=== PATIENT | female | born 1995 | race Caucasian/White ===

== ENCOUNTER 2020-03-05 09:36 | Outpatient (CLI) | payer OTHER ==
[2020-03-06 13:56] LABS: SARS-CoV-2 MS2 Positive; SARS-CoV-2 N Gene Negative; SARS-CoV-2 S Gene Negative; SARS-CoV-2 orf1ab Negative
== END 2020-03-05 09:37 | disposition home or self-care (01) ==
LOC: SCSLAB 09:36
PROVIDERS: ATTEND Family Medicine
DX: Z01.812 Encounter for preprocedural laboratory examination (principal); Z11.59 Encounter for screening for other viral diseases
CPT/HCPCS: 87635; U0003

== ENCOUNTER 2020-03-08 19:30 | Inpatient (IN) | payer MEDICAID, OTHER ==
[~2020-03-08 19:30] MED LIST: Bupivacaine/Epinephrine 0.25% 30 ML VIAL ONE
[2020-03-08] MEDS ORDERED: Promethazine HCl 25 MG/ML VIAL IM PRN (19:59)
[2020-03-08] MEDS ORDERED: hydrALAZINE 20 MG/ML VIAL SLOW IVP PRN (19:59)
[2020-03-08] MEDS ORDERED: Acetaminophen 500 MG TAB PO PRN (19:59)
[2020-03-08] MEDS ORDERED: Ondansetron PF 4 MG/2 ML Vial IVP PRN (19:59)
[2020-03-08] MEDS ORDERED: NS / Oxytocin 40 units/1000ml 1,000 ML IV PRN ×2 (20:03→20:39)
[2020-03-08] MEDS ORDERED: Lidocaine 1% (PF) 30 ML VIAL SC PRN ×2 (20:03→20:39)
--- NOTE | 2020-03-08 20:08 | PDOC.FPROB ---
FMR OB H&P: HPI - History of Present Illness Chief Complaint: eIOL Indentification: 24yo F @ 40.2wks History of Present Illness: This is a 24yo @ 40.2wks by LMP/7wk sono. WALTER 03/06/2020. She is scheduled for an elective IOL. Patient denies any CTX. Endorses normal FM, denies LOF, vaginal bleeding, dysuria LE swelling, vision changes, headache, NVD, sore throat, cough, congestion, fever or chills. Of note, patient late transfer of care. She moved to the [facility] in January. She did have care in [place] up until that point. Primary Care Physician: JASON Cruz FMR OB H&P: Current - Care : 1 Para: 0 Gestational age: 40.2 Due date: 03/06/2020 Dating Criteria: LMP/7wk sono - OB Labs Blood type: A RH: positive Antibody Screen: negative HIV: negative RPR: negative HepBsAg: negative Rubella: immune Gonorrhea: negative Chlamydia: negative Pap Smear: 2019, normal 1 hour gtt: failed by 1 pt 3 hour GTT: normal - First Trimester Ultrasound First trimester: normal - Anatomy Survey Anatomy survey: normal FMR OB H&P: History - Past Medical History PMH: no PMH - OB History OB History: G1, failed her 1hr GTT by one point and had normal 3 hr gtt - CASER IN History CASER IN History: normal pap in 2019, no hx of STDs - Surgical History Sx History: none - Social History Social History: Denies tobacco, alcohol or drug use - Family History Family History: DM, HTN FMR OB H&P: Medications - Current Home Medications: Medication Instructions Recorded Confirmed Type No Known 03/08/20 03/08/20 History Allergies/Adverse Reactions: Allergies Allergy/AdvReac Type Severity Reaction Status Date / Time Penicillins Allergy Hives Verified 03/08/20 20:35 FMR OB H&P: ROS - Review of Systems General: denies: fever/chills, weight/appetite/sleep changes, night sweats, fatigue Eyes: denies: vision changes, double vision, scotomas, floaters ENT: denies: nasal congestion, rhinorrhea, frequent nose bleed, sinus pain/ pressure Cardiovascular: denies: chest pain, palpitation, edema, paroxysmal nocturnal dyspnea Respiratory: denies: cough, congestion, shortness of breath, exercise intolerance Gastrointestinal: denies: abdominal pain, cramping, nausea, vomiting, diarrhea, constipation Genitourinary (Female): denies: dysuria, vaginal discharge, vaginal pain, vaginal bleeding Musculoskeletal: denies: pain, stiffness, tenderness, swelling Neurologic: denies: weakness Integumentary: denies: rash FMR OB H&P: Physical Exam - Physical Exam General: NAD, awake, alert and oriented HEENT: normocephalic and atraumatic, PERRLA, EOMI, MMM Neck: supple, FROM Chest: non-tender to palpation, no lesions Heart: RRR, normal S1/S2, no murmurs/rubs/gallops, pulses present General: CTAB, no respiratory distress, good air movement, no rales/rhonchi, no wheezing, no retractions Abdomen: soft, gravid, non-tender Musculoskeletal: normal gait and station, pulses present, FROM in all four extremities Neurological: no focal deficit Skin: no rash, good tugor, capillary refill <2 seconds Psychiatric: intact recent and remote memory, good judgement and insight, normal mood and affect - Pelvic Exam Vulva: normal hair distribution SVE: /-2 Harper score: 6 FMR OB H&P: A/P - Problem List (1) Intrauterine Current Visit: Yes Status: Acute Code(s): Z34.90 - ENCNTR FOR SUPRVSN OF NORMAL , UNSP, UNSP TRIMESTER (2) Term Current Visit: Yes Status: Acute Code(s): Z34.90 - ENCNTR FOR SUPRVSN OF NORMAL , UNSP, UNSP TRIMESTER Disposition: Term sIUP SVE: /-2. FHT cat 1 strip, irregular CTX. Patient comfortable. - Admit to L&D for eIOL - Routine labor care - LR @ 125ml/hr, NPO - Will give cytotech, harper of 6, Repeat check in 4 hours - GBS negative, no indication for abx - Will confirm cephalic with US Dispo: admit to L&D Case discussed with Dr. Thomson Discussion: Date/Time: 03/08/202004 This H&P was discussed with [] and [] who agree with the above documentation and plan. Addendum - Attending - Attending Attestation Date/Time: 03/08/202106 I personally evaluated the patient and discussed the management with Dr. Bryant I agree with the History, Examination, Assessment and Plan documented above with any addition or exceptions noted below. 24 yo at 40.2 wks by LMP/7 wk sono admitted for eIOL Patient doing well. No complaints. VS reviewed. FHT cat 1 SVE /-3 - eIOL: Cephalic on sono. Cat 1 tracing. Discussed options. Prefers miso for cervical ripening. If reassuring can consider intermittent monitoring if patient desires to move around. - sIUP: IOB labs reviewed. Opos. Anatomy reviewed but limited. 2T/3T negative but failed 1 hour gtt. GBS negative. - [facility]
[2020-03-08 20:35] VITALS: BMI 37.7
[2020-03-08] MEDS: Misoprostol 100 MCG TAB VAG SCH (21:16)
[2020-03-08 21:34] LABS: Hemoglobin 13.3 g/dL (12.0-16.0); Mean Corpuscular HGB CONC 33.6 g/dL (32.0-36.0); Mean Corpuscular Hemoglobin 31.2 pg (27.0-31.0); Mean Corpuscular Volume 92.9 fL (78.0-98.0); Mean Platelet Volume 8.8 fL (7.4-10.4); Platelet Count 252 thou/uL (130-400); Red Blood Cell (RBC) Count 4.27 mill/uL (4.20-5.40); White Blood Cell (WBC) Count 7.6 thou/uL (4.8-10.8)
[2020-03-08 22:13] LABS: Syphilis Antibody Nonreactive (Nonreactive); Syphilis Antibody Index 0.03 S/CO (<1.00 Non-Reactive)
[2020-03-08 22:48] LABS: HBSAg Index 0.13 S/CO (0-0.99); Hep B Surf Ag Non-Reactive S/CO (NonReactive)
--- NOTE | 2020-03-09 01:19 | PDOC.LDPN ---
Labor & Delivery Progress Note - Subjective Subjective: comfortable - Objective Vital signs reviewed and normal: yes General: NAD, resting FHT: category 1 [place] contractions every: feels contractions [id number] Plan: continue plan of care -: 24 yo at 40.3 weeks by LMP c/w 7 wk pieter, WALTER 03/06/20 who presents for eIOL : # Term sIUP SVE: . Cat 1 strip, Pt feeling contractions [id number]. On monitor she is will q2-3 mins. Will administer another cytotec as pt is not feeling contractions. No loss of fluids. - place 2nd cytotec # GBS Negative Dispo: continue induction Addendum - Attending - Attending Attestation Date/Time: 03/09/20 0204 I personally evaluated the patient and discussed the management with Dr. Johansen I agree with the History, Examination, Assessment and Plan documented above with any addition or exceptions noted below. Cervix still unfavorable. Cat 1 tracing. 2nd miso placed. Repeat exam in 4 hours or sooner if indicated. Yenifer
[2020-03-09] MEDS: Misoprostol 100 MCG TAB VAG SCH ×6 (02:06→18:51)
[2020-03-09 04:32] LABS: Amphetamine Not Detected (NotDetected); Barbiturates Screen Not Detected (NotDetected); Benzodiazepine Screen Not Detected (NotDetected); Cocaine Metabolite Screen Not Detected (NotDetected); Medtox Control Line Valid? VALID (VALID); Medtox Reader # READER 4; Methadone Not Detected (NotDetected); Methamphetamine Not Detected (NotDetected); Opiate Screen Not Detected (NotDetected); Oxycodone Screen Not Detected (NotDetected); Phencyclidine (PCP) Not Detected (NotDetected); THC/Cannabinoid Screen Not Detected (NotDetected); Tricyclic Screen Not Detected (NotDetected)
[2020-03-09] MEDS: Lactated Ringer's 1,000 ML IV SCH ×3 (07:01→20:20)
--- NOTE | 2020-03-09 09:15 | PDOC.LDPN ---
Labor & Delivery Progress Note - Subjective Subjective: comfortable - Objective Vital signs reviewed and normal: yes General: NAD Dilation: 1.5 Effacement: 75% (80) Station: -1 FHT: category 1 (135/mod/+accel/no decel) Plan: labor augmentation, pitocin for augmentation -: 24 yo at 40.3 weeks by LMP c/w 7 wk sono, WALTER 03/06/20 who presents for eIOL : # Term sIUP SVE: . Cat 1 strip, ctx q2-4 min. Last cytotec @ 0200. - no significant cervical change for hours. - balloon placement attempted, but unable. Head was down and engaged. AROM @ 0910. Start pitocin # GBS Negative Plan: Start pitocin Addendum - Attending - Attending Attestation Date/Time: 03/09/20 5316 I personally evaluated the patient and discussed the management with Dr. Amin. I agree with the History, Examination, Assessment and Plan documented above with any addition or exceptions noted below. Low lying head and posterior cervical os prevented cook balloon placement by both speculum and manual attempts. However, head was engaged and so I was able to rupture amnion and initiate pitocin.
[2020-03-09] MEDS: NS w/ Oxytocin 10 units 500 ML IV SCH (09:35)
[2020-03-09] MEDS ORDERED: Butorphanol Tartrate 1 MG/ML VIAL ONE (12:38)
[2020-03-09] MEDS ORDERED: Butorphanol Tartrate 1 MG/ML VIAL SLOW IVP PRN (13:11)
[2020-03-09] MEDS: Butorphanol Tartrate 1 MG/ML VIAL SLOW IVP PRN ×2 (14:32→17:26)
--- NOTE | 2020-03-09 17:39 | PDOC.BPN ---
- Brief Progress Note Patient is uncomfortable with contractions. Contraction on pitocin are every 1- 2 minutes. Nurse had titrated pitocin up to 10 but ahs it to 5. Cx check by nurse at 2 pm showed change form 2cm to 4cm. She checked again at 4pm , and found the cervix unchanged. IUPC attempted by nurse. unsuccessful. At 5pm I examined Gayle and found her to be 4/90/0. I attempted to pass IUPC but could not. Head is well engaged. Caput noted. Discussed the possible course of delivery to be a delivery. She is still desiring a vaginal but is comfortable wit a if we think it is best. FHTs are Cat 1. Checkout to Dr bowling given.
[2020-03-09] MEDS ORDERED: Fentanyl 4 mcg/Bup 0.1% Cadd 100 ML ONE (20:11)
[2020-03-09] MEDS ORDERED: Fentanyl 100 MCG/2 ML VIAL ONE (20:23)
[2020-03-09] MEDS ORDERED: Lactated Ringer's 500 ML IV PRN (21:37)
[2020-03-09] MEDS ORDERED: Acetaminophen 325 MG TAB PO PRN (21:37)
[2020-03-09] MEDS ORDERED: EPHEDRINE 25 MG/5 ML SYRINGE SLOW IVP PRN (21:37)
[2020-03-09] MEDS ORDERED: Naloxone HCl 0.4 mg/ml Vial IVP PRN ×2 (21:37)
[2020-03-09] MEDS ORDERED: diphenhydrAMINE 50 MG/ML VIAL IVP PRN (21:37)
[2020-03-09] MEDS ORDERED: Ondansetron PF 4 MG/2 ML Vial IVP PRN (21:37)
[2020-03-09] MEDS ORDERED: Promethazine HCl 25 MG/ML VIAL IM PRN (21:37)
[2020-03-09] MEDS ORDERED: Fentanyl 4 mcg/Bupivacaine 0.1% Cassette 100 ML EPIDURAL SCH (21:45)
[2020-03-09] MEDS ORDERED: Communication Order-Pharmacy FS SCH (21:45)
--- NOTE | 2020-03-09 22:11 | PDOC.LDPN ---
Labor & Delivery Progress Note - Subjective Subjective: comfortable - Objective Vital signs reviewed and normal: yes General: breathing through contractions FHT: category 1 Plan: continue plan of care -: 24 yo at 40.3 weeks by LMP c/w 7 wk WALTER [place] 03/06/20 who presents for eIOL : # Term sIUP SVE: 5-90/0. Cat 1 strip - pt is currently on pitocin and making slight change from previous check. Will recheck in [address] an IUPC. - Epidural placed # GBS Negative Plan: continue pitocin Addendum - Attending - Attending Attestation Date/Time: 03/09/20 3908 I personally evaluated the patient and discussed the management with Dr. Johansen I agree with the History, Examination, Assessment and Plan documented above with any addition or exceptions noted below. Continuing to make slow change. Patient ok to continue VASILE. Will discuss if patient would like to eat and have pit break if contraction not to painful ABrayMD
--- NOTE | 2020-03-09 23:18 | PDOC.LDPN ---
Labor & Delivery Progress Note - Subjective Subjective: comfortable - Objective Vital signs reviewed and normal: yes General: NAD SVE: /-1 FHT: category 1, variability present [place] contractions every: q3mins IUPC placed: yes Plan: continue plan of care -: 24 yo at 40.3 weeks by LMP c/w 7 wk sono, WALTER 03/06/20 who presents for eIOL : # Term sIUP SVE: /-1. Cat 1 strip with moderate variability, accelerations present. - pt is currently on pitocin and making slight change from previous check. IUPC placed to ensure adequate contractions. Will assess MVU's. Pt has been on pitocin > 12 hours - could consider pitocin break. - Epidural placed # GBS Negative Plan: monitor MVU's Addendum - Attending - Attending Attestation Date/Time: 03/09/20 0840 I personally evaluated the patient and discussed the management with Dr. Johansen I agree with the History, Examination, Assessment and Plan documented above with any addition or exceptions noted below. 24 yo female at 40.3 wks - eIOL: Hold pit. Allow patient to eat. Place IUPC and restart pit in 1 hour. - epidural in place - GBS negative - AROM at 0910. Afebrile. No or maternal tachycardia. Yenifer
[2020-03-10] MEDS: NS w/ Oxytocin 10 units 500 ML IV SCH (00:38)
[2020-03-10] MEDS: Lactated Ringer's 1,000 ML IV SCH ×2 (00:40→19:21)
[2020-03-10] MEDS ORDERED: Fentanyl 4 mcg/Bup 0.1% Cadd 100 ML ONE (04:05)
--- NOTE | 2020-03-10 04:30 | PDOC.LDPN ---
Labor & Delivery Progress Note - Subjective Subjective: comfortable - Objective Vital signs reviewed and normal: yes General: NAD SVE: / FHT: category 1 [place] contractions every: q3-4 Plan: continue plan of care -: 24 yo at 40.4 weeks by LMP c/w 7 wk sono, WALTER 03/06/20 who presents for eIOL : # Term sIUP SVE: . Cat 1 strip with moderate variability, accelerations present. - expectant management - Epidural placed # GBS Negative Plan: monitor MVU's Addendum - Attending - Attending Attestation Date/Time: 03/10/20 0528 I personally evaluated the patient and discussed the management with Dr. Johansen I agree with the History, Examination, Assessment and Plan documented above with any addition or exceptions noted below. 24 yo female at 40.4 wks - eIOL: Now at 9 cm. Cat 1 tracing. Continue pit per protocol. - GBS negative - AROM at 0910 on 03/09/20 Yenifer
--- NOTE | 2020-03-10 05:54 | PDOC.LDPN ---
Labor & Delivery Progress Note - Subjective Subjective: comfortable, painful contractions - Objective Vital signs reviewed and normal: yes General: NAD, resting Uterine fundus: non tender SVE: @0545 (Anthony and RN) Dilation: 9.5 Effacement: 90% Station: -1 FHT: category 1 [place] contractions every: 2-3 Other exam findings: Bloody show IUPC placed: yes (earlier) Plan: continue plan of care, pitocin for augmentation -: 24 yo at 40.4 weeks by LMP c/w 7 wk sono, WALTER 03/06/20 who presents for eIOL : # Term sIUP SVE: 9.5/90/0. Cat 1 strip with moderate variability, accelerations present. - expectant management - Epidural in place. Patient is uncomfortable, will see if anesthesia can bolus epidural. # GBS Negative Plan: expectant management. Addendum - Attending - Attending Attestation Date/Time: 03/10/20 0611 I personally evaluated the patient and discussed the management with Dr. Cruz I agree with the History, Examination, Assessment and Plan documented above with any addition or exceptions noted below. Continues to progress. Continue current plan. Cat 1 tracing. Repeat exam in 2 hours vs prn. Yenifer
--- NOTE | 2020-03-10 09:07 | PDOC.LDPN ---
Labor & Delivery Progress Note - Subjective Subjective: comfortable, vaginal pressure - Objective Vital signs reviewed and normal: yes General: NAD, resting, breathing through contractions SVE: @0845 Dilation: 10 w/ anterior lip Effacement: 100% Station: 0 FHT: category 1 [place] contractions every: 2-3 Plan: continue plan of care -: 24 yo at 41 weeks by LMP c/w 7 wk pieter, WALTER 03/03/20 who presents for eIOL: Note this is a change from prior documentation after a review of records # Term sIUP SVE: 10/100/0 w/ anterior lip. Cat 1 strip with moderate variability, accelerations present. - expectant management - Epidural in place, pain well controlled. # GBS Negative Plan: expectant management.
[2020-03-10 10:53] LABS: Actual Bicarbonate (HCO3a) 20.6 mEq/L (22-28); Actual Bicarbonate (HCO3v) 18 mEq/L (22-28); Base Excess -6.8 mEq/L (-2.0 to +3.0); Base Excess (BEa) -10.1 mEq/L (-2.0 to +3.0); pH (Cord, venous) 7.33 (7.32-7.43)
--- NOTE | 2020-03-10 10:59 | PDOC.OPDEL ---
OB Operative/Delivery Note Delivery Dr/Surgeon: Anthony / Elias - Additional Findings/Plan Compilations/Other Findings: Vaginal Delivery note Delivering Physician: Dr. Anthony SYKES PGY 2 Delivering Attending: Dr. Griffin Procedure: Spontaneous Vaginal Delivery Anesthesia: Epidural QBL: 110 Pre-op Diagnosis: 1. IOL for post-dates sIUP Post-op Diagnosis: 1. Term intrauterine , delivered Indications: A 24 y/o female presented to L&D for IOL for post-dates @ 41 wks gestation. Delivery Note: This is 24yoF @ 41.0wks who delivered a viable M at 1026. Following an uneventful antepartum course, a vigorous M was delivered over an intact perineum in the occipitoanterior position. Anterior Shoulder and then remainder of the body delivered. Loose nuchal cord x 1. The head was held down and mouth and nares were bulb suctioned. Cord clamped and cut and cord blood collected. Placenta delivered intact with a 3 vessel cord noted. Fundal massage was performed and the fundus was firm. The cervix and vagina were inspected and found to have small 2nd degree perineal laceration. Laceration noted and repaired with 3-0 chromic suture in the usual fashion with good approximation and hemostasis. Infant went to nursery in good condition for routine care. Apgars were 7/9 at 1 & 5 minutes, respectively. Patient tolerated delivery well and went to after routine recovery/care.
[2020-03-10] MEDS ORDERED: Preparation H Ointment 28 GM TUBE PR PRN (13:18)
[2020-03-10] MEDS ORDERED: Benzocaine-Menthol 82.5 ML CAN TOP PRN (13:18)
[2020-03-10] MEDS ORDERED: NS / Oxytocin 40 units/1000ml 1,000 ML IV SCH (13:18)
[2020-03-10] MEDS ORDERED: Lanolin Ointment 7 GM TUBE TOP PRN (13:18)
[2020-03-10] MEDS ORDERED: hydrALAZINE 20 MG/ML VIAL SLOW IVP PRN (13:18)
[2020-03-10] MEDS ORDERED: Bisacodyl 10 MG SUPP PR PRN (13:18)
[2020-03-10] MEDS ORDERED: Ondansetron PF 4 MG/2 ML Vial IVP PRN (13:18)
[2020-03-10] MEDS ORDERED: diphenhydrAMINE 25 MG CAP PO PRN (13:18)
[2020-03-10] MEDS ORDERED: Milk Of Magnesia 30 ML UDCUP PO PRN (13:18)
[2020-03-10] MEDS: Ferrous Sulfate 325 MG TAB PO SCH (14:44)
[2020-03-10] MEDS: Ibuprofen 800 MG TAB PO SCH ×2 (14:48→21:40)
[2020-03-10] MEDS: Misoprostol 100 MCG TAB VAG SCH (19:20)
[2020-03-10] MEDS: Docusate Calcium (SURFAK) 240 MG CAP PO SCH (21:40)
[2020-03-11 04:44] VITALS: BP 99/59; TEMP 98.4
[2020-03-11] MEDS: Ibuprofen 800 MG TAB PO SCH (06:19)
[2020-03-11] MEDS ORDERED: Prenatal Vitamin 1 TAB PO SCH (09:00)
[2020-03-11] MEDS ORDERED: Adacel (T-DAP) 0.5 ML SYRINGE IM ONE (09:00)
--- NOTE | 2020-03-11 09:00 | PDOC.PP ---
Post Progress Note Post Day #: 1 Subjective: Patient is doing well this morning. ambulating well. passing gas. minimal lochia and pain. PO intake tolerated: yes Flatus: yes Ambulation: yes Vital Signs (12 hours) Temp Pulse Resp BP 03/11/20 04:40 98.4 F 93 16 99/59 L 03/11/20 00:45 97.9 F 85 16 89/51 L Weight Weight 92.986 kg - Physical Examination General: NAD Cardiovascular: no m/r/g, RRR Respiratory: clear to auscultation bilaterally, non-labored breathing Abdominal: + bowel sounds, lochia, no distention, appropriately TTP Psychiatric: A&Ox3, normal affect Result Diagrams: 03/08/20 21:14 Additional Labs: Post Labs Blood Type O POSITIVE 03/08/20 23:22 Hep Bs Antigen Non-Reactive S/CO (NonReactive) 03/08/20 21:14 (1) Status post vaginal delivery Status: Acute (2) Term Code(s): Z34.90 - ENCNTR FOR SUPRVSN OF NORMAL , UNSP, UNSP TRIMESTER Status: Acute - Assessment/Plan PPD#1, s/p - 2nd degree perineal laceration, repaired. - Pain is well controlled. Tolerating po, ambulating, and passing gas. - States she is ready to go home. - Plans to f/u with [facility] . - Will discuss d/c depending on baby's labs. Bharati SYKES PGY2 Addendum - Attending - Attending Attestation Date/Time: 03/11/20 1201 I personally evaluated the patient and discussed the management with Dr. Cruz and team. I agree with the History, Examination, Assessment and Plan documented above with any addition or exceptions noted below. Possibly dc today.
[2020-03-11] MEDS: Ferrous Sulfate 325 MG TAB PO SCH (09:45)
[2020-03-11] MEDS: Docusate Calcium (SURFAK) 240 MG CAP PO SCH (09:50)
== END 2020-03-11 15:25 | disposition home or self-care (01) | DRG 807 ==
LOC: L&D 19:31 → 3SW 03-10 13:46
PROVIDERS: ADMIT Student in an Organized Health Care Education/Training Program; ATTEND Student in an Organized Health Care Education/Training Program
PROC: 10E0XZZ Delivery of Products of Conception, External Approach (ICD-10-PCS; principal; 2020-03-10)
PROC: 0KQM0ZZ Repair Perineum Muscle, Open Approach (ICD-10-PCS; 2020-03-10)
PROC: 10907ZC Drainage of Amniotic Fluid, Therapeutic from Products of Conception, Via Natural or Artificial Opening (ICD-10-PCS; 2020-03-10)
DX: O48.0 Post-term pregnancy (principal); Z37.0 Single live birth; O69.81X0 Labor and delivery complicated by cord around neck, without compression, not applicable or unspecified; Z3A.41 41 weeks gestation of pregnancy; O70.1 Second degree perineal laceration during delivery
CPT/HCPCS: 36415; 51702; 76815; 80306; 82805; 85027; 86780; 86850; 86900; 86901; 87340; J0595; J2590; J3010